=== PATIENT | male | born 1965 | race Caucasian/White ===

== ENCOUNTER 2018-04-21 16:12 | Emergency (ER) | payer OTHER ==
[~2018-04-21] VITALS: Ht 180.3 cm; Wt 82.1 kg
[2018-04-21] MEDS ORDERED: DILT120C11 PO (16:34)
[2018-04-21] MEDS ORDERED: ONDANSETRON 2MG/ML, 2ML ONE (16:39)
[2018-04-21] MEDS ORDERED: GLUCAGON 1 MG ONE (16:39)
[2018-04-21] MEDS ORDERED: ONDANSETRON 2MG/ML, 2ML IVPush ONE (17:00)
[2018-04-21] MEDS ORDERED: GLUCAGON 1 MG IVPush ONE (17:00)
[2018-04-21] MEDS ORDERED: LORazepam 2 MG/ML, 1ML IVPush PRN (17:30)
[2018-04-21] MEDS ORDERED: LORazepam 2 MG/ML, 1ML ONE (17:49)
[2018-04-21] MEDS ORDERED: PROPOFOL 10 MG/ML, 20ML IVPush ONE (19:00)
[2018-04-21] MEDS ORDERED: PROPOFOL 10 MG/ML, 20ML ONE ×2 (19:00→19:01)
[2018-04-21 19:29] VITALS: BP 104/62
== END 2018-04-21 19:50 | disposition home or self-care (01) ==
LOC: ED 19:39
DX: T18.128A Food in esophagus causing other injury, initial encounter (principal); X58.XXXA Exposure to other specified factors, initial encounter; Y93.89 Activity, other specified; Y92.89 Other specified places as the place of occurrence of the external cause; Y99.8 Other external cause status
CPT/HCPCS: 43247; 96374; 96375; 99152; 99153; 99285; J1610; J2060; J2405; J2704

== ENCOUNTER 2020-10-15 20:51 | Emergency (ER) | payer OTHER ==
[~2020-10-15] VITALS: Ht 180.3 cm; Wt 78.3 kg
[~2020-10-15 20:51] MED LIST: DILT120C11 PO
--- NOTE | 2020-10-15 21:26 | NUR ---
ASSESSMENT MADE. CHART UP FOR MD TO SEE.
--- NOTE | 2020-10-15 21:36 | NUR ---
PA AT BEDSIDE.
--- NOTE | 2020-10-15 21:51 | NUR ---
ravindraa provided by
[2020-10-15] MEDS ORDERED: MORPHINE SULFATE 4 MG/ML, 1ML ONE (21:56)
[2020-10-15] MEDS ORDERED: ONDANSETRON 2MG/ML, 2ML ONE (21:56)
[2020-10-15] MEDS ORDERED: ONDANSETRON 2MG/ML, 2ML IVPush ONE (22:00)
[2020-10-15] MEDS ORDERED: SODIUM CHLORIDE 0.9% 1,000ML IVBOLUS ONE (22:00)
[2020-10-15] MEDS ORDERED: MORPHINE SULFATE 4 MG/ML, 1ML IVPush PRN (22:00)
[2020-10-15] MEDS ORDERED: PROPOFOL 10 MG/ML, 20ML IVPush ONE (22:00)
--- NOTE | 2020-10-15 22:02 | NUR ---
soda not helping. patient medicated for pain and nausea. GI team paged.
--- NOTE | 2020-10-15 22:02 | NUR ---
industrial maintenance technician Vasiliy called in
[2020-10-15] MEDS ORDERED: PROPOFOL 10 MG/ML, 20ML ONE ×2 (22:37→22:43)
--- NOTE | 2020-10-15 22:40 | NUR ---
endo team at bedside. consent signed.
--- NOTE | 2020-10-15 22:45 | NUR ---
EGD with sedation started.
--- NOTE | 2020-10-15 22:50 | NUR ---
procedure done. patient still sedated. VSS
--- NOTE | 2020-10-15 23:30 | NUR ---
patient more awake. will continue to monitor.
[2020-10-16] VITALS: BP 137/81
--- NOTE | 2020-10-16 00:05 | NUR ---
patient awake and alert. VSS. discharged with prescription and instruction. verbalized understanding.
== END 2020-10-16 00:08 | disposition home or self-care (01) ==
LOC: ED 23:44
DX: T18.128A Food in esophagus causing other injury, initial encounter (principal); R11.10 Vomiting, unspecified; X58.XXXA Exposure to other specified factors, initial encounter; Y93.89 Activity, other specified; Y92.89 Other specified places as the place of occurrence of the external cause; Y99.8 Other external cause status
CPT/HCPCS: 43247; 96361; 96374; 96375; 99285; J2270; J2405; J2704; J7030

== ENCOUNTER 2020-12-07 16:43 | Emergency (ER) | payer OTHER ==
[~2020-12-07] VITALS: Ht 180.3 cm; Wt 78.0 kg
--- NOTE | 2020-12-07 16:59 | NUR ---
PT HAS CO FOOD STUCK IN ESOPHAGUS. WAS EATING MARILYN, SMALL FOOD DISLODGED SINCE 1 PM. UNABLE TO GET RELIEF. N/V. AIR WAY INTACT. PT STATES HE HAS HAD THROAT STRETCHED OUT BEFORE AND APPOINT W GI SOON.
[2020-12-07] MEDS ORDERED: SODIUM CHLORIDE FLUSH 10ML SYR IVF ONE (17:30)
[2020-12-07] MEDS ORDERED: PROPOFOL 10 MG/ML, 20ML IVPush ONE (17:30)
--- NOTE | 2020-12-07 17:43 | NUR ---
IV STARTED, PT ON [facility]. SUCTION AVAILABLE, O2 APPLIED. READY FOR EGD.
[2020-12-07] MEDS ORDERED: PROPOFOL 10 MG/ML, 20ML ONE (18:06)
[2020-12-07] MEDS ORDERED: KETAMINE 10 MG/ML, 20ML ONE (18:08)
[2020-12-07] MEDS ORDERED: KETAMINE 100 MG/ML, 5ML IV ONE (18:30)
[2020-12-07] MEDS ORDERED: ONDANSETRON 2MG/ML, 2ML ONE (18:31)
--- NOTE | 2020-12-07 18:44 | NUR ---
REPORT TO FLORA
--- NOTE | 2020-12-07 18:44 | NUR ---
MD SAEED ADMINT KETAMINE 50 MG AND PROPOFOL 100 MG FOR EGD PT TOLERATED WELL, AIRWAY INTACT, NO COMPLICATIONS. PT NOW ALERT AND TALKING. NO NAUSEA OR PAIN
--- NOTE | 2020-12-07 18:46 | NUR ---
REPORT FROM GERDA CURIEL
[2020-12-07] MEDS ORDERED: ONDANSETRON 2MG/ML, 2ML IVPush ONE (19:00)
--- NOTE | 2020-12-07 19:00 | NUR ---
PT SITTING UPRIGHT ON SANKET SOLORZANO VSS. PT REPORTS "FEELING MUCH BETTER, I WANT TO GO HOME NOW. I WILL CALL MY MOM TO PICK ME UP". PT DENIES ANY NEEDS AT THIS TIME. CALL LIGHT AND PERSONAL BELONGINGS WITHIN REACH
[2020-12-07 19:40] VITALS: BP 135/81
--- NOTE | 2020-12-07 19:51 | NUR ---
Patient given discharge instructions and they have confirmed that they understand the instructions. Patient ambulatory with steady gait.
== END 2020-12-07 19:54 | disposition home or self-care (01) ==
LOC: ED 17:13
DX: T18.128A Food in esophagus causing other injury, initial encounter (principal); X58.XXXA Exposure to other specified factors, initial encounter; Y93.89 Activity, other specified; Y92.89 Other specified places as the place of occurrence of the external cause; Y99.8 Other external cause status
CPT/HCPCS: 43247; 96374; 99285; J2405